=== PATIENT | female | born 1940 | race Caucasian/White ===

== ENCOUNTER 2018-03-17 07:04 | Observation (INO) ==
[2018-03-17] MEDS ORDERED: 0.9 % Sodium Chloride 1,000 ML IVC ONE (07:17)
[2018-03-17] MEDS ORDERED: Ondansetron 4 MG/2 ML VIAL IVP ONE (07:17)
--- NOTE | 2018-03-17 07:17 | Emergency Department Note ---
Disposition Clinical Impression: Gastroenteritis Disposition: Admitted As Inpatient Condition: Good Referrals: Jennifer Stinson MD [Primary Care Provider] - Forms: ED Satisfaction Letter Nausea/Vomiting/Diarrhea HPI - General Chief complaint: ED Nausea/Vomiting/Diarrhea Stated complaint: Vomiting, diarrhea, & weakness onset 1999 Source: patient, EMS Mode of arrival: EMS Limitations: age Nursing Notes Reviewed: Yes Vital Signs Reviewed: Yes - History of Present Illness HPI Narrative: Patient presents to the ED via EMS complaining of nausea, vomiting and diarrhea. Symptoms started around 8 PM yesterday evening with vomiting first followed by diarrhea. She reports 5-6 episodes of nonbloody nonbilious emesis as well as 4-5 episodes of diarrhea. She did not notice any blood in her stool. States she has felt generally weak since her symptoms began but she denies any abdominal pain. No urinary symptoms. No fever or chills. No chest pain or shortness of breath. States she ate dinner [employer] around 5 PM with a friend and had biscuits, gravy, scrambled eggs and sausage. Her friend ate the same items but has not been ill. Later at home she had a sandwich with bologna and mayonnaise around 7:30, also before symptoms started. No one else ate this food. She did not try anything for her symptoms overnight. Per EMS fingerstick glucose is 165. Her only medical issues are high blood pressure and high cholesterol. No chronic GI problems. No prior abdominal surgeries. - Related Data Home Medications Medication Instructions Recorded Confirmed Atorvastatin [Lipitor] 10 mg PO QPM 10/09/15 03/17/18 hydroCHLOROthiazide 25 mg PO DAILY 10/09/15 03/17/18 [Hydrochlorothiazide] Aspirin [Adult Aspirin Regimen] 81 mg PO DAILY 03/17/18 03/17/18 Allergies Allergy/AdvReac Type Severity Reaction Status Date / Time No Known Allergies Allergy Verified 10/09/15 13:56 Constitutional: Reports: as per HPI, weakness. Denies: fever, chills, weight change Eyes: Denies: eye pain, eye discharge, vision change ENT ED: Denies: ear pain, throat pain, dental pain, hearing loss, epistaxis, congestion, dysphagia Cardiovascular: Denies: chest pain, palpitations, dyspnea on exertion, edema, syncope Respiratory: Denies: cough, dyspnea, wheezes, hemoptysis, stridor Gastrointestinal: Reports: nausea, vomiting, diarrhea. Denies: abdominal pain, constipation, hematemesis, melena, hematochezia Genitourinary: Denies: dysuria, frequency, hematuria, discharge Musculoskeletal: Denies: back pain, neck pain, arthralgia, myalgia Integumentary: Denies: rash, abrasion, lesions Neurological: Denies: headache, weakness, numbness, paresthesias, confusion, abnormal gait, vertigo Psychiatric: Denies: anxiety, depression, suicidal thoughts, homicidal thoughts , auditory hallucinations, visual hallucinations Endocrine: Denies: fatigue Hematological/Lymphatic: Denies: easy bleeding, easy bruising Allergic/Immunologic: Denies: facial swelling, urticaria Past Medical History - Past Medical History Medical history: Reports: hyperlipidemia, hypertension Psychiatric history: Reports: no psych history - Social History Smoking Status: Never smoker Smokeless Tobacco Status: No Alcohol use: Reports: none Drug use: Reports: none Physical Exam - General Limitations: age General appearance: alert, in no apparent distress - Head Head exam: atraumatic, normocephalic, normal inspection - Eye Eye exam: Present: normal appearance, PERRL, EOMI - ENT ENT exam: normal exam, normal oropharynx, mucous membranes dry - Neck Neck exam: Present: normal inspection, full ROM, trachea midline - Chest Chest inspection: Present: normal inspection, symmetric chest wall rise - Respiratory Respiratory exam: Present: normal lung sounds bilaterally - Cardiovascular Cardiovascular exam: Present: regular rate, normal rhythm, normal heart sounds - Abdominal Exam Abdominal exam: Present: soft, Non-Tender, normal bowel sounds. Absent: tenderness, distention, guarding, rebound, rigidity - Extremities Exam Extremities exam: Present: normal inspection, full ROM. Absent: tenderness, pedal edema - Back Exam Back exam: Present: normal inspection, full ROM. Absent: tenderness, CVA tenderness (R), CVA tenderness (L) - Neurological Exam Neurological exam: Present: alert, oriented X3 - Psychiatric Psychiatric exam: Present: normal affect, normal mood - Skin Skin exam: Present: warm, dry, intact, normal color Course Course Narrative: Patient presents to the ED with complaint of nausea, vomiting, diarrhea and generalized weakness started yesterday evening. On arrival she is afebrile, hemodynamically stable and nontoxic in appearance without tachycardia. Physical exam is unremarkable with no abdominal tenderness. Symptoms may be due to a simple viral gastroenteritis versus less likely food poisoning. Will check routine lab work and give medication for nausea along with IV fluids. - Reevaluation(s) Reevaluation #1: Nausea has improved since receiving Zofran. Patient has not had any vomiting or diarrhea since arriving in the ED. Laboratory studies shows a mild leukocytosis with elevated neutrophils. Potassium was slightly low at 3.4, likely from the vomiting and diarrhea. Glucose is elevated at 212. Patient denies any history of diabetes. LFTs and lipase are normal. Patient has had not yet been able to urinate. Patient still feels very weak. Daughter expressed concern that the fact the patient lives alone and was so weak she could not get assistance from EMS and apparently had some falls at home. She did not have any lightheadedness dizziness, chest pain, shortness breath or focal weakness. I think patient would benefit from additional hydration, electrolyte monitoring and symptom control with medication. She is agreeable to admission. Time: 08:30 Reevaluation #2: I spoke to the hospitalist on-call, Dr. Murray, who has agreed to accept the patient. Patient and family updated on plan. Time: 08:36 Vital Signs Temperature 97.7 F 03/17/18 07:06 Pulse Rate 64 03/17/18 07:06 Respiratory Rate 22 03/17/18 07:06 Blood Pressure 151/76 03/17/18 07:06 O2 Sat by Pulse Oximetry 99 03/17/18 07:06 Temperature 97.7 F 03/17/18 07:06 Pulse Rate 60 03/17/18 08:06 Respiratory Rate 22 03/17/18 08:06 Blood Pressure 151/65 03/17/18 08:06 O2 Sat by Pulse Oximetry 98 03/17/18 08:06 Oxygen Delivery Oxygen Delivery Room Air Nausea/Vomiting/Diarrhea - Differential Diagnosis Likely: food poisoning, gastroenteritis, dehydration. Unlikely: drug-induced nausea and vomitting, surgical process, bowel obstruction - Medical Records Medical records reviewed: Yes I reviewed the patient's medical records. - Lab Data Lab results reviewed: Yes I reviewed the patient's lab results. Result diagrams: 03/17/18 07:35 03/17/18 07:35 Lab Results 03/17/18 03/17/18 03/17/18 Range/Units 07:35 07:35 07:35 WBC 11.2 H (4.3-11.1) K/mcL RBC 5.23 H (3.82-4.97) M/mcL Hgb 15.5 H (11.5-15.4) g/dL Hct 45.0 H (35.3-44.9) % MCV 86.0 (83.0-100.0) fL MCH 29.6 (28.0-33.3) pg MCHC 34.4 (31.6-35.5) g/dL RDW 12.8 (11.5-14.5) % Plt Count 214 (140-400) K/mcL MPV 9.7 (9.4-12.4) fL Immature Gran % 0.7 (0-4) % Seg Neutrophils % 91.3 % Lymphocytes % 5.9 % Monocytes % 1.9 % Eosinophils % 0.1 % Basophils % 0.1 % Neutrophils # 10.2 H (1.6-8.9) K/mcL Lymphocytes # 0.7 (0.6-4.6) K/mcL Monocytes # 0.2 (0.0-1.3) K/mcL Eosinophils # 0.0 (0.0-0.6) K/mcL Basophils # 0.0 (0.0-0.2) K/mcL Sodium 141 (136-145) mEq/L Potassium 3.4 L (3.5-5.1) mEq/L Chloride 101 (98-107) mEq/L Carbon Dioxide 28 (23-29) mEq/L BUN 25 H (8-23) mg/dL Creatinine 0.80 (0.60-1.20) mg/dL Est GFR ( Amer) > 60 (> 60) Est GFR (Non-Af Amer) > 60 (> 60) BUN/Creatinine Ratio 31 H (6-26) Glucose 212 H (70-105) mg/dL Calculated Osmolality 303 H (280-300) Lactic Acid 3.8 H (0.5-2.2) mmol/L Calcium 10.3 (8.6-10.3) mg/dL Total Bilirubin 0.9 (0.3-1.0) mg/dL AST 19 (13-39) Units/L ALT 19 (7-52) Units/L Alkaline Phosphatase 63 (34-104) Units/L Serum Total Protein 6.6 (6.4-8.9) g/dL Albumin 4.4 (3.5-5.7) g/dL Globulin 2.2 L (2.4-3.5) g/dL Albumin/Globulin Ratio 2.0 (1.1-2.2) Lipase (11-82) Units/L //18 Range/Units 07:35 WBC (4.3-11.1) K/mcL RBC (3.82-4.97) M/mcL Hgb (11.5-15.4) g/dL Hct (35.3-44.9) % MCV (83.0-100.0) fL MCH (28.0-33.3) pg MCHC (31.6-35.5) g/dL RDW (11.5-14.5) % Plt Count (140-400) K/mcL MPV (9.4-12.4) fL Immature Gran % (0-4) % Seg Neutrophils % % Lymphocytes % % Monocytes % % Eosinophils % % Basophils % % Neutrophils # (1.6-8.9) K/mcL Lymphocytes # (0.6-4.6) K/mcL Monocytes # (0.0-1.3) K/mcL Eosinophils # (0.0-0.6) K/mcL Basophils # (0.0-0.2) K/mcL Sodium (136-145) mEq/L Potassium (3.5-5.1) mEq/L Chloride (98-107) mEq/L Carbon Dioxide (23-29) mEq/L BUN (8-23) mg/dL Creatinine (0.60-1.20) mg/dL Est GFR ( Amer) (> 60) Est GFR (Non-Af Amer) (> 60) BUN/Creatinine Ratio (6-26) Glucose (70-105) mg/dL Calculated Osmolality (280-300) Lactic Acid (0.5-2.2) mmol/L Calcium (8.6-10.3) mg/dL Total Bilirubin (0.3-1.0) mg/dL AST (13-39) Units/L ALT (7-52) Units/L Alkaline Phosphatase (34-104) Units/L Serum Total Protein (6.4-8.9) g/dL Albumin (3.5-5.7) g/dL Globulin (2.4-3.5) g/dL Albumin/Globulin Ratio (1.1-2.2) Lipase 14 (11-82) Units/L
[2018-03-17 07:45] LABS: Basophils % 0.1 %; Eosinophils % 0.1 %; Hemoglobin 15.5 g/dL (11.5-15.4); Immature Granulocytes % 0.7 % (0-4); Lymphocytes # 0.7 K/mcL (0.6-4.6); Lymphocytes % 5.9 %; Mean Corpuscular HGB Conc 34.4 g/dL (31.6-35.5); Mean Corpuscular Hemoglobin 29.6 pg (28.0-33.3); Mean Platelet Volume 9.7 fL (9.4-12.4); Monocytes # 0.2 K/mcL (0.0-1.3); Monocytes % 1.9 %; Neutrophils # 10.2 K/mcL (1.6-8.9); Platelet Count 214 K/mcL (140-400); Red Blood Count 5.23 M/mcL (3.82-4.97); Red Cell Distribution Width 12.8 % (11.5-14.5); Segmented Neutrophils % 91.3 %
[2018-03-17 08:04] LABS: Alanine Aminotransferase 19 Units/L (7-52); Albumin 4.4 g/dL (3.5-5.7); Alkaline Phosphatase 63 Units/L (34-104); Aspartate Amino Transferase 19 Units/L (13-39); BUN/Creatinine Ratio 31 (6-26); Bilirubin,Total 0.9 mg/dL (0.3-1.0); Blood Urea Nitrogen 25 mg/dL (8-23); Calcium 10.3 mg/dL (8.6-10.3); Carbon Dioxide 28 mEq/L (23-29); Chloride 101 mEq/L (98-107); Globulin 2.2 g/dL (2.4-3.5); Glucose 212 mg/dL (70-105); Osmolality,Calculated 303 (280-300); Potassium 3.4 mEq/L (3.5-5.1); Sodium 141 mEq/L (136-145); Total Protein 6.6 g/dL (6.4-8.9); eGFR For Non-African Americans > 60 (> 60)
[2018-03-17] MEDS ORDERED: Naloxone 0.4 MG/ML INJ IVP PRN ×2 (08:38→09:42)
[2018-03-17] MEDS ORDERED: Ondansetron 4 MG/2 ML VIAL IVP PRN ×3 (08:39→18:18)
[2018-03-17] MEDS ORDERED: 0.9 % Sodium Chloride 1,000 ML IVC SCH ×2 (08:45→09:42)
[2018-03-17] MEDS ORDERED: HYDROCHLOROTHIAZIDE 25 MG PO SCH (09:42)
[2018-03-17] MEDS ORDERED: hydroCHLOROthiazide 25 MG TABLET PO SCH (10:00)
[2018-03-17] MEDS: Aspirin Enteric Coated 81 MG Tablet PO SCH (11:16)
--- NOTE | 2018-03-17 14:34 | Internal Med History&Physical ---
Date of Encounter: 03/17/18 Time of Encounter: 12:15 Assessment and Plan (1) Gastroenteritis Current visit: Yes Status: Acute She will be given IV fluids. Anti-emetics will be given as needed. Further workup will be done as indicated. (2) Hypertension Current visit: Yes Status: Chronic Hold HCTZ because of hypokalemia. Qualifiers: Hypertension type: essential hypertension Qualified Code(s): I10 - Essential (primary) hypertension (3) Hypokalemia Current visit: Yes Status: Acute Probably secondary to HCTZ use with superimposed vomiting/diarrhea. Give supplemental potassium and recheck labs in a.m. Internal Medicine - H&P: HPI Chief complaint: Vomiting and diarrhea Admitted From: Emergency Dept Plans for Post Hospital Care: Home History of present illness: Ms. Dunbar is a 77 year old female who came to emergency room stating she had onset of vomiting and diarrhea approximately 8 PM the evening of March 16. She reports no visible blood and no significant abdominal pain. There were no acquaintances or family members similarly affected. She was evaluated in emergency room and found to have mild leukocytosis with left shift and hypokalemia. She was admitted to [facility] floor for ongoing care needs. She states she feels slightly improved at present time and has had no further vomiting or diarrhea since admission to [facility] floor. She denies previous similar episodes. She denies disorders of her liver gallbladder or exocrine pancreas. Past Med Surg Social Fam HX - Past Medical History Medical history: hyperlipidemia, hypertension Additional medical history: ACTZ Psychiatric history: no psych history - Past Surgical History Additional surgical history: Biopsy of right breast - Social History Smoking Status: Never smoker Smokeless Tobacco Status: No Alcohol use: none Drug use: none Internal Medicine - H&P: Meds Atorvastatin [Lipitor] 10 mg PO QPM 10/09/15 [History] hydroCHLOROthiazide [Hydrochlorothiazide] 25 mg PO DAILY 10/09/15 [History] Aspirin [Adult Aspirin Regimen] 81 mg PO DAILY 03/17/18 [History] 3 Allergy/AdvReac Type Severity Reaction Status Date / Time No Known Allergies Allergy Verified 10/09/15 13:56 All Systems PM: A 10-system review of systems was performed and is negative for pertinent findings except as documented above in the HPI. Review of systems: Gen.: She states her weight has been stable the past few months Cardiovascular: She has history of hypertension but denies CT heart failure angina DVT or pulmonary embolus Respiratory: She is a lifelong nonsmoker and has no known chronic lung disease GI: As per history of present illness : She had kidney stones in the past without recurrence. She denies other disorders of kidney or bladder. Neurologic: She reports her memory has decreased in the past few years. She denies large distribution strokes or seizures. Endocrine: She has hyperlipidemia but denies diabetes or thyroid disease Hematology/oncology: She denies blood disorders cancers or anemia Psychiatric: She has feelings of depression but has not been on medication. She denies anxiety other mental health issues. [place] skeletal: She denies arthritis gout or bone joint or muscle disorders. - Constitutional Vitals: Temp Pulse Resp BP Pulse Ox 97.6 F 57 17 136/71 98 03/17/18 11:14 03/17/18 11:14 03/17/18 11:14 03/17/18 11:14 03/17/18 11:14 Exam: Gen.: She is a well-developed well-nourished female resting comfortably in bed who appears in no acute distress HEENT: Head is atraumatic and normocephalic. Eyes: EOMI. There is no scleral icterus. Mouth: Mucosa is dry. Neck: Supple and nontender. There is no thyromegaly or adenopathy noted. Heart: Regular without murmurs gallops or ectopics Lungs: No wheezes or crackles are heard. Abdomen: Soft and nontender. No masses or guarding are noted. Bowel sounds are diminished. Extremities: There is no cyanosis edema or clubbing noted. Dorsalis pedis and posttibial pulses are trace to 1+ palpable bilaterally. Neurologic: Mental status: She is talkative and seems to be a reliable historian. Cranial nerves: Smile is symmetric. Forehead wrinkles bilaterally. Tongue protrudes midline. EOMI. Motor: There is no pronator drift. Cerebellar: Finger to nose is intact bilaterally. Skin: Warm and dry Internal Med - H&P Results - Labs CBC & Chem 7: 03/17/18 07:35 03/17/18 07:35 - VTE Reasons for not Prescribing Prophylaxis: Treatment not Indicated - Low risk for VTE
[2018-03-17] MEDS: 0.45 % Sodium Chloride w/KCl 20 MEQ/1,000 ML MLS IVC SCH (16:11)
[2018-03-17] MEDS ORDERED: Mag Hydrox/Al Hydrox/Simeth 30 ML UDC PO PRN (18:19)
[2018-03-18] MEDS: 0.45 % Sodium Chloride w/KCl 20 MEQ/1,000 ML MLS IVC SCH ×2 (00:14→08:19)
[2018-03-18] MEDS: Aspirin Enteric Coated 81 MG Tablet PO SCH (08:19)
--- NOTE | 2018-03-18 11:52 | Internal Med Progress Note ---
Date of Encounter: 03/18/18 Time of Encounter: 11:40 - Assessment and plan (1) Gastroenteritis Current Visit: Yes Status: Acute Assessment and plan: March 18. Improved. Diet will be advanced. IV fluids will be discontinued. (2) Hypertension Current Visit: Yes Status: Chronic Assessment and plan: March 18. Blood pressure stable. Remain off HCTZ. Qualifiers: Hypertension type: essential hypertension Qualified Code(s): I10 - Essential (primary) hypertension (3) Hypokalemia Current Visit: Yes Status: Acute Assessment and plan: March 18. Potassium level not back. (4) Multiple falls Current Visit: Yes Status: Acute Assessment and plan: March 18. Order PT and OT evaluation. - Subjective Interval history: March 18. She has no new complaints and feels better. She still feels weak but has had no further vomiting. - Constitutional Vitals: Temp Pulse Resp BP Pulse Ox 97.8 F 49 15 141/67 97 03/18/18 11:07 03/18/18 11:07 03/18/18 11:07 03/18/18 11:07 03/18/18 11:07 Exam: She is sitting in a chair at bedside and appears comfortable. Her affect is more cheerful. I reviewed her medications. Morning lab results showed normalization of lactic acid. Remainder of ordered labs has not been completed. Internal Medicine: Result - Labs CBC & Chem 7: 03/17/18 07:35 03/17/18 07:35 - Impressions Impressions Head CT 03/17/18 17:37 IMPRESSION: No acute intracranial abnormality. D/ / Claudio Brown MD / Claudio Brown MD Interpreting Provider: Claudio Brown MD - VTE Reasons for not Prescribing Prophylaxis: Treatment not Indicated - Low risk for VTE Consult Discharge Plan - Plan Referrals: Jennifer Stinson MD [Primary Care Provider] - 1 week
[2018-03-18 12:28] LABS: Basophils % 0.2 %; Eosinophils # 0.1 K/mcL (0.0-0.6); Eosinophils % 0.6 %; Hematocrit 41.9 % (35.3-44.9); Hemoglobin 13.9 g/dL (11.5-15.4); Immature Granulocytes % 0.5 % (0-4); Lymphocytes # 2.6 K/mcL (0.6-4.6); Mean Corpuscular HGB Conc 33.2 g/dL (31.6-35.5); Mean Corpuscular Hemoglobin 29.5 pg (28.0-33.3); Mean Platelet Volume 9.9 fL (9.4-12.4); Monocytes # 0.8 K/mcL (0.0-1.3); Monocytes % 6.1 %; Platelet Count 206 K/mcL (140-400); Red Blood Count 4.71 M/mcL (3.82-4.97); Red Cell Distribution Width 13.3 % (11.5-14.5); Segmented Neutrophils % 71.6 %
[2018-03-18 12:29] LABS: Neutrophils # 8.9 K/mcL (1.6-8.9)
[2018-03-18 12:38] LABS: BUN/Creatinine Ratio 28 (6-26); Blood Urea Nitrogen 23 mg/dL (8-23); Calcium 9.4 mg/dL (8.6-10.3); Carbon Dioxide 28 mEq/L (23-29); Chloride 108 mEq/L (98-107); Glucose 96 mg/dL (70-105); Osmolality,Calculated 294 (280-300); Potassium 3.8 mEq/L (3.5-5.1); Sodium 140 mEq/L (136-145); eGFR For Non-African Americans > 60 (> 60)
[2018-03-18] MEDS ORDERED: Ondansetron ODT 4 MG TAB.RAPDIS SL PRN (19:05)
[2018-03-18 21:02] LABS: Bilirubin,Urine Negative (Negative); Blood,Urine Negative (Negative); Clarity,Urine Clear (Clear); Color,Urine Yellow (Yellow); Glucose,Urine (UA) Normal (Normal); Ketones,Urine Trace mg/dL (Negative); Leukocyte Esterase,Urine Moderate (Negative); Nitrite,Urine Negative (Negative); Protein,Urine 30 mg/dL (Neg-Trace)
[2018-03-18 21:11] LABS: Squamous Epithelial Cell,Urine Moderate per lpf (None-Few); WBC,Urine 15-30 per hpf (0-3)
[2018-03-18 21:12] LABS: Mucus,Urine Few (Few)
[2018-03-19] MEDS: Aspirin Enteric Coated 81 MG Tablet PO SCH (08:35)
[2018-03-19 11:24] VITALS: BP 163/78
--- NOTE | 2018-03-19 12:16 | Discharge Summary ---
Orders not resulted at time of discharge: Pending orders 03/17/18 12:50 Magnesium Routine 03/18/18 04:00 Basic Metabolic Panel AM 0400 Complete Blood Count [HEME] AM 0400 Vitamin B12 AM 0400 Date of Encounter: 03/19/18 Time of Encounter: 12:05 - Discharge Diagnosis (1) Gastroenteritis Priority: Primary Status: Acute (2) Hypertension Priority: Secondary Status: Chronic Qualifiers: Hypertension type: essential hypertension Qualified Code(s): I10 - Essential (primary) hypertension (3) Hypokalemia Priority: Secondary Status: Resolved (4) Multiple falls Priority: Secondary Status: Acute Hospital course: Ms. Dunbar is a 77 year old female who came to emergency room stating she had onset of vomiting and diarrhea approximately 8 PM the evening of March 16. She reports no visible blood and no significant abdominal pain. There were no acquaintances or family members similarly affected. She was evaluated in emergency room and found to have mild leukocytosis with left shift and hypokalemia. She was admitted to [facility] floor for ongoing care needs. Initial orders were written by the emergency room physician. I saw her on March 17 and performed the history and physical. She was given IV fluids. Antiemetics were used as needed. She had no vomiting after the first hospital day and was able to tolerate adequate amount of food and fluids. She was given supplemental potassium and hypokalemia resolved. HCTZ dose will be reduced to 12.5 mg daily. She will continue on potassium supplement 10 mEq daily at discharge. Her PCP can monitor blood pressure and labs. She had physical therapy and occupational therapy evaluations. Physical therapy recommended a front-wheeled walker. Family was concerned she might have early dementia. I told them her PCP Dr. Stinson could further evaluate and/or refer to neurology. On March 19 she was stable for discharge home. She will follow with Dr. Stinson within 1 week. - Time Spent with Patient Total time spent providing and/or coordinating discharge services: - Discharge Medications Prescriptions: hydroCHLOROthiazide [Hydrochlorothiazide] 12.5 mg PO DAILY #30 tablet Potassium Chloride 10 meq PO DAILY #30 tab.er.prt Home Medications: Atorvastatin [Lipitor] 10 mg PO QPM 10/09/15 [History] Aspirin [Adult Aspirin Regimen] 81 mg PO DAILY 03/17/18 [History] Potassium Chloride 10 meq PO DAILY #30 tab.er.prt 03/19/18 [Rx] hydroCHLOROthiazide [Hydrochlorothiazide] 12.5 mg PO DAILY #30 tablet 03/19/18 [ Rx] Allergies/Adverse Reactions: 3 Allergy/AdvReac Type Severity Reaction Status Date / Time No Known Allergies Allergy Verified 10/09/15 13:56 Date of admission: 03/17/18 08:45 Primary care physician: Jennifer Stinson Consults: 03/18/18 11:42 Consult to Occupational Therapy [CONS] Routine Comment: Evaluate, develop and implement POC Reason for Consult: Weakness, falls Does patient have active BEDREST order?: No Is patient medically & hemodynamically stable?: Yes Patient assessed for mobility or mobilized this visit?: Yes Consult to Physical Therapy [CONS] Routine Comment: Evaluate, develop and implement POC Reason for Consult: Weakness, fall Does patient have active BEDREST order?: No Is patient medically & hemodynamically stable?: Yes Patient assessed for mobility or mobilized this visit?: Yes - Constitutional Vitals: Temp Pulse Resp BP Pulse Ox 97.6 F 67 16 163/78 97 03/19/18 11:21 03/19/18 11:21 03/19/18 11:21 03/19/18 11:21 03/19/18 11:21 - Patient Status Disposition: Home, Self-Care Condition: Good - Discharge Instructions Follow Up With: Jennifer Stinson MD [Primary Care Provider] - 03/24/18 1:00 pm - Diet and Activity Activity: as per physical therapy Diet: advance to your usual diet - VTE Reasons for not Prescribing Prophylaxis: Treatment not Indicated - Low risk for VTE
== END 2018-03-19 13:17 | disposition home or self-care (01) ==
LOC: EMEROOPIK 07:04 → INPPIK 07:04
PROVIDERS: ADMIT Internal Medicine; ATTEND Internal Medicine